=== PATIENT | female | born 1990 | race Caucasian/White ===

== ENCOUNTER 2017-06-05 12:20 | Day surgery (SDC) | payer SELFPAY, MEDICAID ==
[2017-06-05 13:56] LABS: ADD UMIC NO; UR ASCORBIC ACID 20 mg/dL (NEGATIVE); UR BACTERIA FEW /HPF (NONE SEEN); UR BILIRUBIN (Dip) NEGATIVE (NEGATIVE); UR BLOOD (Dip) NEGATIVE (NEGATIVE); UR CLARITY SLIGHTLY CLOUDY (CLEAR); UR COLOR YELLOW (YELLOW); UR GLUCOSE (Dip) NEGATIVE (NEGATIVE); UR KETONES (Dip) NEGATIVE (NEGATIVE); UR LEUKOCYTE ESTERASE (Dip) NEGATIVE Leu/ul (NEGATIVE); UR NITRITE (Dip) NEGATIVE (NEGATIVE); UR RBC 7 /HPF (0-5); UR SPECIFIC GRAVITY (Dip) 1.017 (1.003-1.030); UR SQUAMOUS EPITHELIAL CELL FEW /HPF (FEW); UR TOTAL PROTEIN (Dip) NEGATIVE (NEGATIVE); UR UROBILINOGEN (Dip) NEGATIVE (NEGATIVE); UR WBC 3 /HPF (0-5)
[2017-06-05 14:17] LABS: ADD MAN DIFF? NO
[2017-06-05 14:22] LABS: BASOPHIL # 0.1 10^3/ul (0.0-0.1); BASOPHILS % 0.7 % (0.0-2.0); EOSINOPHILS # 0.1 10^3/ul (0.0-0.5); EOSINOPHILS % 1.4 % (0.0-7.0); HEMATOCRIT 37.4 % (37.0-47.0); HEMOGLOBIN 12.4 g/dl (12.0-16.0); LYMPHOCYTES # 2.4 10^3/ul (0.8-2.9); LYMPHOCYTES % 34.5 % (15.0-51.0); MEAN CORPUSCULAR HGB CONC 33.2 g/dl (32.0-37.0); MEAN CORPUSCULAR VOLUME 81.5 fl (82.0-101.0); MEAN PLATELET VOLUME 10.6 fl (7.4-10.4); MONOCYTE # 0.4 10^3/ul (0.3-0.9); MONOCYTES % 5.1 % (0.0-11.0); NEUTROPHIL # 4.1 10^3/ul (1.6-7.5); PLATELET COUNT 258 10^3/UL (140-415); RED BLOOD COUNT 4.59 10^6/ul (4.20-5.40); RED CELL DISTRIBUTION WIDTH 14.5 % (11.5-14.5)
[2017-06-05] MEDS ORDERED: ROPIVACAINE 0.2% 20 ML VIAL (15:30)
[2017-06-05] MEDS ORDERED: PROPOFOL 0 ML (15:30)
[2017-06-05] MEDS ORDERED: ROCURONIUM 50 MG INJ (15:30)
[2017-06-05] MEDS ORDERED: METOCLOPRAMIDE 10 MG INJ (15:30)
[2017-06-05] MEDS ORDERED: ONDANSETRON 4 MG INJ (15:30)
[2017-06-05] MEDS ORDERED: MIDAZOLAM 1 MG/ML 2 ML INJ (15:31)
== END 2017-06-08 11:56 | disposition home or self-care (01) ==
LOC: SDS 12:20
DX: Z30.2 Encounter for sterilization (principal)
CPT/HCPCS: 81001; 81003; 84703; 85025

== ENCOUNTER 2017-06-12 12:33 | Day surgery (SDC) | payer MEDICAID ==
[2017-06-12 14:06] LABS: ADD MAN DIFF? NO
[2017-06-12 14:08] LABS: BASOPHIL # 0.1 10^3/ul (0.0-0.1); BASOPHILS % 0.8 % (0.0-2.0); EOSINOPHILS # 0.1 10^3/ul (0.0-0.5); EOSINOPHILS % 1.5 % (0.0-7.0); HEMOGLOBIN 12.4 g/dl (12.0-16.0); LYMPHOCYTES # 2.1 10^3/ul (0.8-2.9); LYMPHOCYTES % 34.8 % (15.0-51.0); MEAN CORPUSCULAR HEMOGLOBIN 27.3 pg (29.0-33.0); MEAN CORPUSCULAR HGB CONC 33.5 g/dl (32.0-37.0); MEAN CORPUSCULAR VOLUME 81.5 fl (82.0-101.0); MEAN PLATELET VOLUME 10.3 fl (7.4-10.4); MONOCYTE # 0.3 10^3/ul (0.3-0.9); NEUTROPHIL # 3.5 10^3/ul (1.6-7.5); NEUTROPHILS % 57.7 % (39.0-77.0); PLATELET COUNT 273 10^3/UL (140-415); RED BLOOD COUNT 4.54 10^6/ul (4.20-5.40); RED CELL DISTRIBUTION WIDTH 14.4 % (11.5-14.5)
[2017-06-12 14:21] LABS: ADD UMIC YES; UR ASCORBIC ACID 20 mg/dL (NEGATIVE); UR BILIRUBIN (Dip) NEGATIVE (NEGATIVE); UR BLOOD (Dip) 3+ mg/dL (NEGATIVE); UR CLARITY CLEAR (CLEAR); UR COLOR YELLOW (YELLOW); UR GLUCOSE (Dip) NEGATIVE (NEGATIVE); UR KETONES (Dip) NEGATIVE (NEGATIVE); UR LEUKOCYTE ESTERASE (Dip) NEGATIVE Leu/ul (NEGATIVE); UR NITRITE (Dip) NEGATIVE (NEGATIVE); UR RBC 4 /HPF (0-5); UR SPECIFIC GRAVITY (Dip) 1.014 (1.003-1.030); UR TOTAL PROTEIN (Dip) NEGATIVE (NEGATIVE); UR UROBILINOGEN (Dip) NEGATIVE (NEGATIVE); UR WBC 1 /HPF (0-5)
[2017-06-12] MEDS ORDERED: BUPIVACAINE 0.25% (MPF) 30 ML INJ (15:33)
[2017-06-12] MEDS ORDERED: LIDOCAINE 1%/EPI 30 ML INJ (15:33)
[2017-06-12] MEDS ORDERED: MIDAZOLAM 1 MG/ML 2 ML INJ (15:58)
[2017-06-12] MEDS: LIDOCAINE 1%/EPI 30 ML INJ INJ (16:51)
[2017-06-12] MEDS: BUPIVACAINE 0.25% (MPF) 30 ML INJ INJ (16:51)
[2017-06-12] MEDS ORDERED: KETOROLAC 30 MG INJ ×2 (17:17→17:59)
[2017-06-12] MEDS ORDERED: ROCURONIUM 50 MG INJ (17:23)
[2017-06-12] MEDS ORDERED: CEFAZOLIN 1 GM INJ (17:23)
[2017-06-12] MEDS ORDERED: PROPOFOL 20 ML (17:23)
[2017-06-12] MEDS ORDERED: NEOSTIGMINE 3 MG/3 ML SYRINGE (17:23)
[2017-06-12] MEDS ORDERED: GLYCOPYRROLATE 0.4 MG INJ (17:23)
[2017-06-12] MEDS ORDERED: ONDANSETRON 4 MG INJ (17:23)
[2017-06-12] MEDS ORDERED: LIDOCAINE 2% (SDV) 5 ML INJ (17:23)
[2017-06-12] MEDS ORDERED: KETOROLAC 60 MG INJ IM (17:24)
[2017-06-12] MEDS: DOXYCYCLINE 100 MG TAB PO (17:58)
[2017-06-12] MEDS ORDERED: FENTAnyl 50 MCG/ML VIAL IV (18:00)
[2017-06-12] MEDS ORDERED: HYDROmorphONE (0.2 MG/ML) 10ML SYG IV ×2 (18:00)
[2017-06-12] MEDS ORDERED: MEPERIDINE 25 MG INJ IV (18:00)
[2017-06-12] MEDS ORDERED: DIPHENHYDRAMINE 50 MG INJ IV (18:00)
[2017-06-12] MEDS: BUTORPHANOL 2 MG INJ IM (18:00)
[2017-06-12] MEDS: ONDANSETRON 4 MG INJ IV ×2 (18:01→18:49)
[2017-06-12] MEDS: KETOROLAC 30 MG INJ IM (18:06)
== END 2017-06-12 18:50 | disposition home or self-care (01) ==
LOC: SDS 12:33
DX: Z30.2 Encounter for sterilization (principal)
CPT/HCPCS: 58600; 81001; 85025